=== PATIENT | female | born 1985 | race Caucasian/White ===

== ENCOUNTER → 2021-06-06 | Outpatient (CLI) | payer OTHER ==
--- NOTE | 2021-06-07 08:22 | US ---
EXAMINATION TYPE: US OB >= 14 wk fetus DATE OF EXAM: 06/06/2021 COMPARISON: None CLINICAL HISTORY: Z36 confirm dates confirm dates TECHNIQUE: Transabdominal (TA) GESTATIONAL AGE / DATING Physician Established: Not yet established Dates by LMP: (14 weeks/5 days) EDC: 11/30/21 Dates by First Scan: No previous this is first scan Dates by Current Scan: (14 weeks/5 days) EDC: 11/30/21 SURVEY IUP: Single PLACENTA: Anterior PREVIA: No Previa MELLY: Normal - too early to accurately measure CERVICAL LENGTH (transabdominal: norm > 3.0cm): 3.1 cm BIOMETRY PRESENTATION: Variable LIE: Transverse with head maternal RT BPD: 2.6 cm 14 weeks / 4 days HC: 10.0 cm 14 weeks / 5 days AC: 8.9 cm 15 weeks / 1 days FL: 1.5 cm 14 weeks / 3 days ESTIMATED WEIGHT IN GRAMS: 105 grams ESTIMATED WEIGHT IN LBS/OZ: 0 lbs. 4 oz. WEIGHT PERCENTAGE BASED ON ESTABLISHED DATES: 36% HC/AC: 1.12 Normal FL/AC: 17% Normal HEART RATE: 140 bpm RHYTHM: Normal IMPRESSION: Limited survey. Single viable intrauterine corresponding to ultrasound age 14 weeks 5 days with estimated date of delivery 11/30/2021
== END | disposition home or self-care (01) ==
LOC: RADUSWWP 16:10
PROVIDERS: ATTEND Obstetrics & Gynecology
DX: Z36.89 Encounter for other specified antenatal screening (principal); Z3A.14 14 weeks gestation of pregnancy
CPT/HCPCS: 76805